=== PATIENT | female | born 1950 | race Caucasian/White ===

== ENCOUNTER 2020-09-09 12:23 | Outpatient (CLI) | payer MEDICARE ==
[2020-09-09 22:45] LABS: SARS-CoV-2 MS2 Positive; SARS-CoV-2 N Gene Negative; SARS-CoV-2 S Gene Negative; SARS-CoV-2 by NAA Not Detected (NotDetected); SARS-CoV-2 orf1ab Negative
== END 2020-09-09 12:24 | disposition home or self-care (01) ==
LOC: LABBT 12:23
PROVIDERS: ATTEND Student in an Organized Health Care Education/Training Program
DX: E04.1 Nontoxic single thyroid nodule (principal); Z20.828 Contact with and (suspected) exposure to other viral communicable diseases
CPT/HCPCS: 87635; U0003

== ENCOUNTER 2020-09-14 12:45 | Day surgery (SDC) | payer MEDICARE ==
[2020-09-14] MEDS ORDERED: Lidocaine 1% PF 5 ML VIAL ONE (12:50)
[2020-09-14] MEDS ORDERED: Sodium Bicarbonate 2.5 MEQ/5 ML VIAL ONE (12:50)
[2020-09-14 13:56] VITALS: BP 150/78; TEMP 98
--- NOTE | 2020-09-14 14:37 | ULT ---
ULTRASOUND-GUIDED FINE-NEEDLE ASPIRATION BIOPSY OF THYROID GLAND RIGHT LOBE ULTRASOUND-GUIDED FINE-NEEDLE ASPIRATION BIOPSY OF THYROID GLAND LEFT LOBE: 09/14/2020 HISTORY: 69-year-old female with discrete, large TIRADS category 5 right thyroid nodule. Diffusely increased size, echogenicity, with heterogeneity of entire left lobe. TECHNIQUE: Signed informed consent obtained. Right discrete thyroid nodule targeted first. Anteromedial approach. Skin of anterior neck prepared and draped in usual sterile fashion. 25-gauge needle used to apply buffered lidocaine superficially, then under ultrasound guidance, deepl y. Under ultrasound guidance, a series of 4 separate 25-gauge needles mounted on 4 separate 5 mL syringe s, were used to aspirate the discrete large right thyroid nodule. Each sample was given to Dr. Mahendra Cuellar of pathology. The same procedure was repeated for the left lobe. There is no discrete nodule recognizable in the le ft lobe, and the 25-gauge needles were placed within the left lobe at random. Patient tolerated the procedure well. No complications. IMPRESSION: 1.) Technically successful 25-gauge needle fine-needle aspiration biopsy x4 of discrete right thyroid nodule. 2) technically successful 25-gauge needle fine-needle aspiration biopsy x4 randomly of the diffusely abnormal left thyroid lobe.
== END 2020-09-14 14:25 | disposition home or self-care (01) ==
LOC: ULT 12:45
PROVIDERS: ATTEND Student in an Organized Health Care Education/Training Program
PROC: 0GBG3ZX Excision of Left Thyroid Gland Lobe, Percutaneous Approach, Diagnostic (ICD-10-PCS; principal; 2020-09-14)
PROC: 0GBH3ZX Excision of Right Thyroid Gland Lobe, Percutaneous Approach, Diagnostic (ICD-10-PCS; 2020-09-14)
DX: E04.1 Nontoxic single thyroid nodule (principal); E07.89 Other specified disorders of thyroid; M54.2 Cervicalgia; M48.00 Spinal stenosis, site unspecified; I10 Essential (primary) hypertension; I25.10 Atherosclerotic heart disease of native coronary artery without angina pectoris; M19.90 Unspecified osteoarthritis, unspecified site; Z79.01 Long term (current) use of anticoagulants; Z79.02 Long term (current) use of antithrombotics/antiplatelets; Z79.1 Long term (current) use of non-steroidal anti-inflammatories (NSAID); Z79.899 Other long term (current) drug therapy; Z88.8 Allergy status to other drugs, medicaments and biological substances; Z95.5 Presence of coronary angioplasty implant and graft
CPT/HCPCS: 60100; 76942; 88173; 88305

== ENCOUNTER 2020-11-17 07:13 | Observation (INO) | payer MEDICARE ==
[2020-11-16 13:37] VITALS: BMI 41.5
[2020-11-17] MEDS ORDERED: Fentanyl 250 MCG/5 ML VIAL ONE (08:24)
[2020-11-17] MEDS ORDERED: Ondansetron PF 4 MG/2 ML Vial ONE (10:08)
[2020-11-17] MEDS ORDERED: Lidocaine 1% PF 5 ML VIAL ONE (10:08)
[2020-11-17] MEDS ORDERED: PHENYLEPHRINE-NS 100 MCG/ML 10 ML SYRINGE ONE (10:08)
[2020-11-17] MEDS ORDERED: PROPOFOL 200 MG/20 ML VIAL ONE (10:08)
[2020-11-17] MEDS ORDERED: Ketorolac Tromethamine 30 MG/ML VIAL ONE (10:08)
[2020-11-17] MEDS ORDERED: Rocuronium Bromide 10 MG/ML (10ML VIAL) ONE (10:08)
[2020-11-17] MEDS ORDERED: ePHEDrine 50 MG/ML VIAL ONE (10:08)
[2020-11-17] MEDS ORDERED: Dexamethasone 20 MG/5 ML VIAL ONE (10:08)
[2020-11-17] MEDS ORDERED: Lidocaine 1% w/Epinephrine 1:100K 20 ML VIAL ONE (11:14)
[2020-11-17] MEDS ORDERED: Bacitracin Zinc Ointment 30 gm TUBE ONE (14:14)
[2020-11-17] MEDS ORDERED: Morphine Sulfate 2 MG/ML SYRINGE SLOW IVP PRN (14:58)
[2020-11-17] MEDS ORDERED: Ondansetron HCl/PF 4 MG/2 ML Vial IVP PRN (14:58)
[2020-11-17] MEDS ORDERED: Fentanyl 100 MCG/2 ML VIAL ONE (15:06)
[2020-11-17] MEDS ORDERED: SUGAMMADEX SODIUM 200 MG/2 ML VIAL ONE (15:12)
[2020-11-17] MEDS ORDERED: Ondansetron PF 4 MG/2 ML Vial IVP PRN (15:39)
[2020-11-17] MEDS ORDERED: Morphine 2 MG/ML VIAL SLOW IVP PRN (15:40)
[2020-11-17] MEDS ORDERED: Lactated Ringer's 1,000 ML IV SCH (15:45)
[2020-11-17 16:18] LABS: Calcium 8.6 mg/dL (7.8-10.44); Magnesium 1.9 mg/dL (1.6-2.6); Phosphorus 3.2 mg/dL (2.3-4.7)
[2020-11-17] MEDS: Calcium Carbonate 500 MG ChewTAB PO SCH (20:15)
[2020-11-17] MEDS: Metoprolol Tartrate 25 MG TAB PO SCH (20:15)
[2020-11-17] MEDS: HYDROcodone/Acetaminophen 5/325 mg Tablet PO PRN (22:30)
[2020-11-18 08:08] VITALS: TEMP 98.1
[2020-11-18] MEDS: Metoprolol Tartrate 25 MG TAB PO SCH (08:46)
[2020-11-18] MEDS: Calcium Carbonate 500 MG ChewTAB PO SCH ×2 (08:46→14:46)
[2020-11-18] MEDS ORDERED: Calcitriol 0.25 MCG CAP PO SCH (09:00)
[2020-11-18] MEDS: HYDROcodone/Acetaminophen 5/325 mg Tablet PO PRN (12:13)
[2020-11-18 12:19] VITALS: BP 158/78
[2020-11-18 14:20] LABS: Calcium 8.9 mg/dL (7.8-10.44); Phosphorus 4.5 mg/dL (2.3-4.7)
[2020-11-18 18:22] LABS: Calcium 8.6 mg/dL (7.8-10.44)
[2020-11-18 18:30] LABS: Phosphorus 4.3 mg/dL (2.3-4.7)
--- NOTE | 2020-11-19 12:44 | OP ---
DATE OF PROCEDURE: 11/17/2020 PREOPERATIVE DIAGNOSES: Multinodular goiter with compressive symptoms and dysphagia. POSTOPERATIVE DIAGNOSES: Multinodular goiter with compressive symptoms and dysphagia. PROCEDURE PERFORMED: Total thyroidectomy. PERMIT: Procedures, benefits, risks including those of bleeding, infection, injury to recurrent laryngeal nerves, damage to airway, hypocalcemia, hematoma, infection, allergic reaction, scarring, necessitating revision and repair, and alternatives were reviewed with the patient, who expressed understanding of the information and consent form was signed and witnessed and a paper copy of the consent form is available for review in the paper chart. INDICATIONS: This is a 69-year-old female patient presenting to the clinic with history of significant spinal and neck pain as well as compressive symptoms and multinodular goiter and suspicious thyroid nodules, presenting for operative intervention. ASSISTANTS: Prakash Klein MD FINDINGS: Left enlarged thyroid lobe with large thyroid nodules, right enlarged thyroid lobe, normal central tracheal anatomy and prominent . DESCRIPTION OF PROCEDURE: The patient was brought back to the operating room and laid supine on the operating room table. General endotracheal anesthesia was administered after a complete time-out was performed. The neck was evaluated after the patient was placed under anesthesia and the neck gently extended with taking great care not to overextend the neck and having it resting comfortably on head padding. After this was completed, the anterior airway landmarks including the cricoid, thyroid notch and the sternal notch were identified and central trachea was marked. A central incision over a horizontal skin incision in a natural skin crease was identified inferior to the cricoid and marked and then 1% lidocaine with 1:100,000 epinephrine was injected. After this was performed, the patient was prepped and draped in a sterile fashion and after this was completed, a 15 blade scalpel was used to make an incision through the dermis and epidermis down to the subcutaneous tissue. After this was performed, Bovie cautery was used to incise the subcutaneous tissue down to the level of the platysma and an incision through the platysma on the left than the right side with the central dehiscence was made. Aravind Rakes were used to elevate the superior subplatysmal skin flap up to the level of the thyroid notch and then inferiorly to the sternal notch. At this point, the Mahsandhyaer retractor was placed and dissection carried in the midline vertically with both blunt and electrocautery and identifying the midline strap muscles. After strap muscles were identified in the midline, they were divided with a combination of blunt and electrocautery and immediately the enlarged thyroid lobe was identified inferior to the strap muscles. The strap muscles were retracted laterally with [place] retractors and the great vessels were identified both on the left and the right side. After which, the left thyroid which was greatly enlarged with hypervascularity was identified and gently retracted medially and superiorly. We identified the left superior pole. There was a significant nodule in this area, which prevented identification of the left superior pole vascular bundle. Significant excess dissection took place in this area requiring several minutes of dissection in the medial tunnel as well as in the lateral tunnel, approximately 3 to 4 vascular bundles were identified and had to be suture ligated individually with silk suture. After this was performed, the left superior thyroid lobe was retracted medially and dissection carried just over the thyroid capsule, identifying the superior left parathyroid gland and keeping it intact and removing it using blunt dissection, was carried inferiorly until the recurrent laryngeal nerve was identified. After this was identified, the dissection continued with blunt dissection with bipolar cautery and suture ligation of any vessels inferiorly until the inferior thyroid pole vessels were identified and suture ligated. Next, the thyroid was retracted medially with [place] retractors and the ligament of Mcdonald was identified. Blunt dissection was used to separate this area until significant distance from the recurrent laryngeal nerve was achieved and then bipolar cautery was used to divide Mcdonald's ligament and elevate the large left thyroid lobe over to the right thyroid lobe. At this point, a Estefany clamp was placed over the right thyroid isthmus and Bovie cautery was used to remove the left thyroid lobe and sent for permanent pathology and then the right thyroid lobe with a baseball stitch was made and to tie that thyroid off to prevent any future bleeding and the Estefany clamp was removed. A similar dissection was performed on the right side. The thyroid was retracted inferiorly and medially and the right thyroid superior lobe was identified. Medial and lateral tunnel was made with blunt dissection until the left thyroid superior pole vessels were identified, which were clamped with a right-angle clamp and then suture ligated. After this was completed, the right thyroid lobe was retracted medially and inferiorly and the dissection on the thyroid capsule was continued until the right recurrent laryngeal nerve was identified. The superior parathyroid gland was identified and kept intact. Dissection carried inferiorly until the right inferior thyroid pole vessels were identified, which were also suture ligated. Then, the thyroid lobe was retracted medially and extracapsular dissection was continued until the ligament of Mcdonald was identified. Blunt dissection and suture ligation of any vessels were continued until the thyroid was retracted in significant distance from the recurrent laryngeal nerve and then bipolar cautery was used to separate the ligament of Mcdonald and then the right thyroid lobe was also sent for permanent pathology. The surgical bed was copiously irrigated 3 times and a Valsalva maneuver was performed twice and any bleeding vessels were suture ligated or ligated with bipolar cautery. At this point, the wound bed where the thyroid gland was sitting, was seen to be dry without any active bleeding. Small postage stamp sized areas of Surgicel were placed in the wound bed and a 15-[place]ian channel drain was trimmed and then placed in the wound bed and 2-0 silk suture was used to anchor the drain in place. The drain was placed deep to the strap muscles and then the strap muscles were loosely approximated with 3-0 Vicryl suture interrupted, taking care to avoid the drain and then the subcutaneous tissue was then closed in two layers of 3-0 Vicryl suture, a deep layer and then a deep dermal layer, and then the dermal layer was closed with a 4-0 Prolene continuous running suture and then bacitracin was placed over the wound bed. The drain was seen to be holding suction and the neck was flat and the patient was turned over to Anesthesia for emergence. The patient was extubated, breathing and talking in the operative room before rolling back to the PACU, where the patient was placed under 23-hour observation. Job ID: [id number]
== END 2020-11-18 16:55 | disposition home or self-care (01) ==
LOC: SDC 07:13 → SURG A 15:10
PROVIDERS: ADMIT Student in an Organized Health Care Education/Training Program; ATTEND Student in an Organized Health Care Education/Training Program
PROC: 0GTK0ZZ Resection of Thyroid Gland, Open Approach (ICD-10-PCS; principal; 2020-11-17)
PROC: 0GBJ0ZZ Excision of Thyroid Gland Isthmus, Open Approach (ICD-10-PCS; 2020-11-17)
DX: E04.2 Nontoxic multinodular goiter (principal); R13.19 Other dysphagia; R22.1 Localized swelling, mass and lump, neck; M54.2 Cervicalgia; M48.00 Spinal stenosis, site unspecified; Z79.1 Long term (current) use of non-steroidal anti-inflammatories (NSAID); Z79.01 Long term (current) use of anticoagulants; Z79.02 Long term (current) use of antithrombotics/antiplatelets; Z79.899 Other long term (current) drug therapy; Z91.048 Other nonmedicinal substance allergy status; Z95.5 Presence of coronary angioplasty implant and graft
CPT/HCPCS: 60240; 82310 ×3; 83735 ×2; 83970 ×2; 84100 ×2; G0378 ×2; 36415; 88307; 88311; 88331; 88334; J0690; J1100; J1885; J2405; J2704; J3010; J3490